=== PATIENT | female | born 1985 | race Caucasian/White ===

== ENCOUNTER 2016-07-30 17:43 | Inpatient (IN) | payer OTHER ==
[~2016-07-30] VITALS: Ht 167.6 cm; Wt 78.2 kg
[2016-07-30 18:17] VITALS: Ht 167.6 cm; Wt 78.2 kg
[2016-07-30] MEDS ORDERED: IBUPROFEN 600 MG TAB PO PRN (18:30)
[2016-07-30] MEDS ORDERED: MISOPROSTOL 200 MCG TAB PR PRN (18:30)
[2016-07-30] MEDS ORDERED: METHYLERGONOVINE 0.2 MG INJ IM PRN (18:30)
[2016-07-30] MEDS ORDERED: OXYTOCIN 30 UNITS/LR 500 ML IV PRN (18:30)
[2016-07-30] MEDS ORDERED: OXYTOCIN 30 UNITS/LR 500 ML IV SCH ×2 (18:30)
[2016-07-30] MEDS ORDERED: CARBOPROST 250 MCG INJ IM PRN (18:30)
[2016-07-30] MEDS ORDERED: LIDOCAINE 1% (MPF) 30 ML INJ INJ PRN (18:30)
[2016-07-30] MEDS ORDERED: BUTORPHANOL 2 MG INJ IV PRN (18:30)
[2016-07-30 18:32] LABS: ADD SCAN DIFF NO
[2016-07-30 18:34] LABS: BASOPHILS % 0.5 % (0.0-2.0); EOSINOPHILS # 0.1 10^3/ul (0.0-0.5); EOSINOPHILS % 1.5 % (0.0-7.0); HEMATOCRIT 38.9 % (37.0-47.0); HEMOGLOBIN 13.2 g/dl (12.0-16.0); LYMPHOCYTES # 1.4 10^3/ul (0.8-2.9); LYMPHOCYTES % 18.9 % (15.0-51.0); MEAN CORPUSCULAR HEMOGLOBIN 33.2 pg (29.0-33.0); MEAN CORPUSCULAR HGB CONC 33.9 g/dl (32.0-37.0); MEAN CORPUSCULAR VOLUME 97.7 fl (82.0-101.0); MEAN PLATELET VOLUME 11.2 fl (7.4-10.4); MONOCYTE # 0.6 10^3/ul (0.3-0.9); MONOCYTES % 7.8 % (0.0-11.0); NEUTROPHIL # 5.3 10^3/ul (1.6-7.5); NEUTROPHILS % 70.4 % (39.0-77.0); PLATELET COUNT 219 10^3/UL (140-415); RED BLOOD COUNT 3.98 10^6/ul (4.20-5.40); RED CELL DISTRIBUTION WIDTH 13.3 % (11.5-14.5); WHITE BLOOD COUNT 7.5 10^3/ul (4.8-10.8)
[2016-07-30] MEDS: LACTATED RINGER'S 1,000 ML IV SCH (19:10)
[2016-07-30 19:19] LABS: INR 1.02; PARTIAL THROMBOPLASTIN TIME 28.6 Sec (25.0-35.0); PROTIME 13.4 Sec (12.2-14.2)
[2016-07-30 20:20] VITALS: BP 118/78; PULSE 88; RESP 18
--- NOTE | 2016-07-30 21:02 | RADRPT ---
PROCEDURE: US OB. CLINICAL INDICATION: Post dates TECHNIQUE: Multiple sonographic images of the pelvis were obtained. Transabdominal imaging only w as performed. The images were reviewed on a PACS workstation. COMPARISON: No prior studies are available for comparison. FINDINGS: There is a single living intrauterine gestation in cephalic position. There is an anterior placenta. There is no evidence of previa. .Adequate amnionic fluid is demonstrated. Active cardiac motion is seen at 152 beats per minute. The biparietal diameter is 9.42 cm consistent with a 64-ktxk-2-day gestation. The head circumference is 33.49 cm consistent with 13-qopw-7-day gestation. The abdominal circumference is 35.13 cm consistent with a 32-opax-5-day gestation. The femur length is 7.76 cm consistent with a 18-cqks-9-day gestation. Estimated weight is 3659 plus or minus 549 g IMPRESSION: 1. Single living intrauterine gestation in cephalic position with a mean gestational age by ultrasound of 38-week 6 days plus or minus 19 days with estimated date of delivery of 08/07/2016. RPTAT: [facility] Physician Karmen Date Time Electronically viewed and signed by Physician Karmen on 07/30/2016 21:02 /
--- NOTE | 2016-07-30 21:03 | RADRPT ---
PROCEDURE: OB ultrasound for biophysical profile CLINICAL INDICATION: Post dates TECHNIQUE: Multiple sonographic images of the pelvis were obtained. Transabdominal view of the gr avid uterus are available for review. The images were reviewed on a PACS workstation. COMPARISON: Bony ultrasound from the same date. FINDINGS: breathing movement = 2/2 tone = 2/2 motion = 2/2 Quantitative amniotic fluid volume = 2/2 KATIE = 10.1 cm Single live intrauterine with cardiac activity at 154 beats per minute. There is a anterior placenta without previa. IMPRESSION: 1. Single living intrauterine gestation in cephalic position. 2. Biophysical profile = 88. 3. KATIE = 10.1 cm. RPTAT: [facility] Physician Karmen Date Time Electronically viewed and signed by Physician Karmen on 07/30/2016 21:02 /
--- NOTE | 2016-07-30 21:34 | HP ---
Date/Time of Note Date/Time of Note DATE: 07/30/16 TIME: 21:30 OB - History Hx of Present Chief Complaint: post dates Estimated Due Date: July 25, 2016 : 2 Para: 1 Spontaneous : 0 Therapeutic : 0 Care: Good Care Ultrasounds: Normal mid trimester US Obstetrical Complications: None Medical Complications: None Past Family/Social History * Past Medical, Surgical, Family and Obstetric Histories reviewed from chart. GBS Status: Negative OB Admission Exam Physical Exam HEENT: WNL Heart: Rhythm Normal Lungs: Clear Abdomen: WNL Extremities: Normal Cervical Dilatation: 2cm Effacement: 75% Station: -2 Membranes: Intact Heart Rate: 130's Accelerations: Accelerations Present Decelerations: No Decelerations Varibility: Moderate Last 72 hours Lab Results CBC & BMP 07/30/16 18:20 OB Assessment/Plan Reason for admission: other (post dates) Plan: Induction SONA PEARCE MD July 30, 2016 21:34
[2016-07-31] MEDS: LACTATED RINGER'S 1,000 ML IV SCH ×2 (01:03→09:51)
[2016-07-31] MEDS ORDERED: OXYTOCIN 30 UNITS/LR 500 ML IV SCH (10:00)
[2016-07-31] MEDS: LACTATED RINGER'S 1,000 ML IV PRN ×2 (17:40→18:29)
[2016-07-31] MEDS ORDERED: FENTAnyl 2MCG/ML-ROPIV 0.2% 100 ML ONE (18:25)
[2016-07-31] MEDS ORDERED: FENTAnyl 2MCG/ML-ROPIV 0.2% 100 ML BAG EPI SCH (19:30)
[2016-07-31] MEDS ORDERED: NALOXONE (0.4 MG/ML) INJ IV PRN (19:30)
[2016-07-31] MEDS ORDERED: ONDANSETRON 4 MG INJ IV PRN (19:30)
[2016-07-31] MEDS ORDERED: DIPHENHYDRAMINE 50 MG INJ IV PRN (19:30)
--- NOTE | 2016-07-31 23:45 | PN ---
Date/Time of Note Date/Time of Note DATE: 07/31/16 TIME: 23:42 OB Subjective Subjective Subjective late entry note Patient was feeling urge to push. Attended to the patient bedside. Patient comfortable with epidural. Denied any complaints. OB Objective Objective Objective GA: A&O, NAD Abdomen: Soft gravid, no tenderness, no rebound tenderness Fundal height consistent with gestational age NST: Category 2, occasional late decelerations noted with contractions, resolved with intrauterine resuscitation OB Assessment/Plan Other Assessment: Status post induction for postdates Second stage of labor GBS negative Category 2 , anticipate Watch carefully for labor curve. Plan: Expectant Management OLEKSANDR LARA MD July 31, 2016 23:45
--- NOTE | 2016-07-31 23:47 | LDN ---
Date/Time of Note Date/Time of Note DATE: 07/31/16 TIME: 23:45 Delivery Summary Head at the perineum, and I was called by RN to attend the delivery Weeks of Gestation 41 weeks Placenta Delivered: Spontaneously Meconium: none Episiotomy: No Indication for episiotomy N/A Perineal laceration: 1 Laceration repair: First-degree perineal laceration repaired using 3-0 chromic, Anesthesia type: Epidural Estimated blood loss: 100 Sponge & Needle done & correct: Yes All needle counts correct: Yes Any foreign bodies felt in the: No Problems: Delivery Information Sex Infant Sex: female Apgars 1 Minute: 8 5 Minute: 9 Suctioning Nose & mouth suctioned at kam: Yes Delee suction performed: Yes Umbilical Cord Umbilical cord with: 3 Vessels Cord presentations: nuchal cord Nuchal cord present X: 1 Cord Blood was obtained: Yes Copies To: CC: FORREST CASE MD, MARYAM MD July 31, 2016 23:47
[2016-07-31] MEDS: LACTATED RINGER'S 1,000 ML IV* SCH (23:49)
[2016-08-01] VITALS (7 sets, daily range): BP systolic 102–130; BP diastolic 63–82; PULSE 66–80; RESP 18–20
[2016-08-01] MEDS ORDERED: ACETAMINOPHEN 325 MG TAB PO PRN
[2016-08-01] MEDS ORDERED: OXYTOCIN 30 UNITS/LR 500 ML IV PRN
[2016-08-01] MEDS ORDERED: DIPHENHYDRAMINE 25 MG CAP PO PRN
[2016-08-01] MEDS ORDERED: ONDANSETRON 4 MG INJ IV PRN
[2016-08-01] MEDS ORDERED: morphine 2 MG INJ IV PRN
[2016-08-01] MEDS ORDERED: METHYLERGONOVINE 0.2 MG INJ IM PRN
[2016-08-01] MEDS ORDERED: ZOLPIDEM 5 MG TAB PO PRN
[2016-08-01] MEDS ORDERED: MISOPROSTOL 200 MCG TAB PR PRN
[2016-08-01] MEDS ORDERED: CARBOPROST 250 MCG INJ IM PRN
[2016-08-01] MEDS ORDERED: WITCH HAZEL/GLYCERIN PAD PR PRN
[2016-08-01] MEDS ORDERED: LANOLIN 7 GM TUBE TOP PRN
[2016-08-01] MEDS: LACTATED RINGER'S 1,000 ML IV* SCH ×3 (04:02→23:49)
[2016-08-01] MEDS: IBUPROFEN 600 MG TAB PO SCH ×5 (06:06→23:42)
[2016-08-01 08:19] LABS: ADD SCAN DIFF NO
[2016-08-01] MEDS: SENNA/DOCUSATE NA (8.6MG/50MG) TAB PO SCH ×3 (08:40→20:50)
[2016-08-01 08:43] LABS: BASOPHILS % 0.3 % (0.0-2.0); EOSINOPHILS # 0.1 10^3/ul (0.0-0.5); EOSINOPHILS % 1.4 % (0.0-7.0); HEMATOCRIT 33.6 % (37.0-47.0); LYMPHOCYTES # 1.4 10^3/ul (0.8-2.9); LYMPHOCYTES % 14.8 % (15.0-51.0); MEAN CORPUSCULAR HEMOGLOBIN 32.5 pg (29.0-33.0); MEAN CORPUSCULAR HGB CONC 32.7 g/dl (32.0-37.0); MEAN CORPUSCULAR VOLUME 99.4 fl (82.0-101.0); MEAN PLATELET VOLUME 11.6 fl (7.4-10.4); MONOCYTE # 0.8 10^3/ul (0.3-0.9); MONOCYTES % 7.8 % (0.0-11.0); NEUTROPHIL # 7.3 10^3/ul (1.6-7.5); NEUTROPHILS % 75.1 % (39.0-77.0); PLATELET COUNT 185 10^3/UL (140-415); RED BLOOD COUNT 3.38 10^6/ul (4.20-5.40); RED CELL DISTRIBUTION WIDTH 13.3 % (11.5-14.5); WHITE BLOOD COUNT 9.7 10^3/ul (4.8-10.8)
--- NOTE | 2016-08-01 20:47 | PN ---
Date/Time of Note Date/Time of Note DATE: 08/01/16 TIME: 20:45 OB Subjective Subjective Subjective ppd1 afebrile vs stable abdomen soft ut firm ext nl Laboratory Tests Test 08/01/16 07:50 White Blood Count 9.710^3/ul Red Blood Count 3.3810^6/ul Hemoglobin 11.0g/dl Hematocrit 33.6% Mean Corpuscular Volume 99.4fl Mean Corpuscular Hemoglobin 32.5pg Mean Corpuscular Hemoglobin Concent 32.7g/dl Red Cell Distribution Width 13.3% Platelet Count 94160^3/UL Mean Platelet Volume 11.6fl Neutrophils % 75.1% Lymphocytes % 14.8% Monocytes % 7.8% Eosinophils % 1.4% Basophils % 0.3% Nucleated Red Blood Cells % 0.0/100WBC Neutrophils # 7.310^3/ul Lymphocytes # 1.410^3/ul Monocytes # 0.810^3/ul Eosinophils # 0.110^3/ul Basophils # 0.010^3/ul Nucleated Red Blood Cells # 0.010^3/ul Current Medications Medications (Trade) Dose Ordered Sig/Jd Route PRN Reason Start Time Stop Time Status Last Admin Dose Admin Lactated Ringer's (Lr) 1,000 ml @ 125 mls/hr Q8H IV 07/30/16 18:02 07/31/16 23:51 DC 07/31/16 09:51 Butorphanol Tartrate (Stadol) 2 mg Q2H PRN IV PAIN 07/30/16 18:30 07/31/16 23:51 DC Lidocaine 30 ml 30 ml ONCE PRN INJ EPISIOTOMY/TEARING 07/30/16 18:30 07/31/16 23:51 DC Oxytocin/Lactated Ringer's 500 ml @ 125 mls/hr ONCE -MAY REPEAT X1 IV 07/30/16 18:30 07/31/16 23:51 DC 07/31/16 23:49 Oxytocin/Lactated Ringer's 500 ml @ 125 mls/hr ONCE IV 07/30/16 18:30 07/31/16 23:52 DC Ibuprofen 600 mg 600 mg ONCE PRN PO Mild Pain (Pain Score 1-3) 07/30/16 18:30 07/31/16 23:52 DC Lactated Ringer's 1,000 ml @ 2,000 mls/hr Q30M PRN IV PRE-EPIDURAL BOLUS 07/30/16 18:30 07/31/16 23:52 DC 07/31/16 18:29 Oxytocin/Lactated Ringer's 500 ml @ 0 mls/hr ONCE PRN IV For Hemorrhage Management 07/30/16 18:30 07/31/16 23:51 DC Methylergonovine Maleate (Methergine) 0.2 mg ONCE PRN IM VAGINAL BLEEDING 07/30/16 18:30 07/31/16 23:51 DC Carboprost Tromethamine (Hemabate) 250 mcg ONCE PRN IM VAGINAL BLEEDING 07/30/16 18:30 07/31/16 23:51 DC Misoprostol 1000 mcg 1,000 mcg ONCE PRN [place] VAGINAL BLEEDING 07/30/16 18:30 07/31/16 23:51 DC Oxytocin/Lactated Ringer's 500 ml @ 0 mls/hr Q0M IV 07/31/16 10:00 07/31/16 23:52 DC 07/31/16 09:56 Fentanyl/ Ropivacaine 100 ml @ STK-MED ONCE .ROUTE 07/31/16 18:25 07/31/16 18:26 DC Naloxone HCl (Narcan) 0.1 mg Q2M PRN IV FOR RESP RATE 8 OR LESS 07/31/16 19:30 07/31/16 23:52 DC Diphenhydramine HCl (Benadryl) 25 mg Q6H PRN IV ITCHING 07/31/16 19:30 07/31/16 23:52 DC Ondansetron HCl (Zofran Inj) 4 mg Q6H PRN IV NAUSEA AND/OR VOMITING 07/31/16 19:30 07/31/16 23:52 DC Fentanyl/ Ropivacaine 100 ml 100 ml EPIDURAL INFUSION EPI 07/31/16 19:30 07/31/16 23:52 DC Lactated Ringer's (Lr) 1,000 ml @ 125 mls/hr Q8H IV* 07/31/16 23:49 08/01/16 04:02 Morphine Sulfate (morphine) 1 mg Q3 PRN IV PAIN LEVEL 6-10 08/01/16 00:00 08/01/16 00:00 DC Ibuprofen (Motrin) 600 mg Q6 PO 08/01/16 00:00 08/01/16 18:09 Ondansetron HCl (Zofran Inj) 4 mg Q6H PRN IV NAUSEA AND/OR VOMITING 08/01/16 00:00 08/01/16 01:06 Diphenhydramine HCl (Benadryl) 25 mg Q6H PRN PO PRURITUS 08/01/16 00:00 Zolpidem Tartrate (Ambien) 5 mg QHS PRN PO INSOMNIA 08/01/16 00:00 Senna/Docusate Sodium (Senokot-S) 1 tab BID PO 08/01/16 00:00 08/01/16 08:40 Witch [place]/ Glycerin (Tucks Pads) 1 pad BEDSIDE MEDICATION PRN [place] HEMORRHOID/EPISIOTMY PAIN 08/01/16 00:00 08/01/16 04:02 Lanolin (Clb-U-Imwjkg) 1 applic BEDSIDE MEDICATION PRN TOP BEDSIDE FOR DAYANA TO NIPPLES 08/01/16 00:00 08/01/16 04:02 Measles/Mumps/ Rubella Vaccine Live (Mmr Ii Vaccine) 0.5 ml ONCE ONCE SC* 08/02/16 09:00 08/02/16 09:01 Diphtheria/ Tetanus/Acell Pertussis (Adacel) 0.5 ml ONCE ONCE IM* 08/02/16 09:00 08/02/16 09:01 Varicella Virus Vaccine Live (Varivax Vaccine With Diluent) 1,350 unit ONCE ONCE SC* 08/02/16 09:00 08/02/16 09:01 Acetaminophen 650 mg 650 mg Q4H PRN PO ELEVATED TEMPERATURE 08/01/16 00:00 08/01/16 08:40 Oxytocin/Lactated Ringer's 500 ml @ 0 mls/hr ONCE PRN IV For Hemorrhage Management 08/01/16 00:00 Methylergonovine Maleate (Methergine) 0.2 mg ONCE PRN IM VAGINAL BLEEDING 08/01/16 00:00 Carboprost Tromethamine (Hemabate) 250 mcg ONCE PRN IM VAGINAL BLEEDING 08/01/16 00:00 Misoprostol (Cytotec) 1,000 mcg ONCE PRN [place] VAGINAL BLEEDING 08/01/16 00:00 FORREST CASE MD August 01, 2016 20:47
[2016-08-02 04:15] VITALS: BP 106/74; PULSE 67; RESP 18
[2016-08-02] MEDS: IBUPROFEN 600 MG TAB PO SCH ×2 (05:36→12:06)
[2016-08-02] MEDS: LACTATED RINGER'S 1,000 ML IV* SCH (07:49)
--- NOTE | 2016-08-02 08:27 | OPPN ---
Date/Time of Note Date/Time of Note DATE: 08/02/16 TIME: 08:26 Post-Anesthesia Notes Post-Anesthesia Note Last documented vital signs Vital Signs Date Time Temp Pulse Resp B/P Pulse Ox O2 Delivery O2 Flow Rate FiO2 08/02/16 04:15 98.0 67 18 106/74 Room Air Activity: WNL Respiratory function: WNL Cardiovascular function: WNL Mental status: Baseline Pain reasonably controlled: Yes Hydration appropriate: Yes Nausea/Vomiting absent: Yes THU ARVIZU August 02, 2016 08:27
[2016-08-02 08:30] VITALS: BP 122/83; PULSE 65; RESP 18
--- NOTE | 2016-08-02 08:58 | PD.PPDC ---
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 Patient Condition: Good Diet Diet: Resume Regular Diet Activity/Restrictions Activity: Normal Activity May Shower Restrictions: No Exercising No Lifting No Driving No Sexual Activity Nothing in the Vagina No [place] No Tampons, douche Follow-up Follow-up with Physician: 2, Week/Weeks Provider Information: Appointment clinic in 2 weeks for check Return to clinic for BUNDLE PERSON Instructions: Fever greater than 101 Chills Worsening abdominal pain Excessive Vaginal Bleeding More than 2 pads per hour Unable to tolerate diet OB Instructions: Breast Tenderness Depression Blurried Vision Headache FORREST CASE MD August 02, 2016 08:58
[2016-08-02] MEDS ORDERED: DIPHTH/TET/ACEL PERTUSS (ADULT) 0.5 ML VIAL IM* ONE (09:00)
[2016-08-02] MEDS ORDERED: VARICELLA VACCINE LIVE/PF 1,350 UNIT/0.5 ML ML SC* ONE (09:00)
[2016-08-02] MEDS ORDERED: MEASLES,MUMPS,RUBELLA VACCINE INJ SC* ONE (09:00)
--- NOTE | 2016-08-02 09:01 | DS ---
Date/Time of Note Date/Time of Note DATE: 08/02/16 TIME: 08:59 Discharge Summary Admission/Discharge Info Admit Date/Time July 30, 2016 at 17:43 Discharge Date/Time August 02 at 0900 Final Diagnosis Day 2 post normal vaginal delivery Patient Condition: Good Procedures Normal vaginal delivery Hx of Present Illness Term Hospital Course Uneventful satisfactory Follow-up Plan Appointment clinic in 2 weeks for check Primary Care Provider [facility] Time spent on discharge: > 30 minutes FORREST CASE MD August 02, 2016 09:01
[2016-08-02] MEDS: SENNA/DOCUSATE NA (8.6MG/50MG) TAB PO SCH (09:06)
== END 2016-08-02 14:05 | disposition home or self-care (01) | DRG 775 ==
LOC: L-D 17:43 → PP1 08-01 01:23
PROVIDERS: ADMIT Obstetrics & Gynecology; ATTEND Obstetrics & Gynecology
PROC: 10E0XZZ Delivery of Products of Conception, External Approach (ICD-10-PCS; principal; 2016-07-31)
PROC: 0HQ9XZZ Repair Perineum Skin, External Approach (ICD-10-PCS; 2016-07-31)
DX: O48.0 Post-term pregnancy (principal); O69.81X0 Labor and delivery complicated by cord around neck, without compression, not applicable or unspecified; O70.0 First degree perineal laceration during delivery; Z3A.40 40 weeks gestation of pregnancy; Z37.0 Single live birth
CPT/HCPCS: 62319; 76815; 76818; 85025; 85610; 85730; 86592; 86900; 86901; 87340; 90715; 90716; J2405; J2590; J3010; J7120